=== PATIENT | female | born 1945 | race Caucasian/White ===

== ENCOUNTER 2019-10-30 17:08 | Outpatient (CLI) | payer OTHER, SELFPAY ==
--- NOTE | 2019-10-30 | XRR_ITS ---
PROCEDURE INFORMATION: Exam: XR Left Ankle Exam date and time: 10/30/2019 5:45 PM Age: 74 years old Clinical indication: Prior surgery; Patient HX: Left ankle pain; Additional info: Joint pain TECHNIQUE: Imaging protocol: XR Left ankle. Views: 3 or more views. COMPARISON: No relevant prior studies available. FINDINGS: Bones/joints: Bone spur inferior calcaneus otherwise negative for acute bony abnormalities Soft tissues: Unremarkable XR/XR ankle LT min 3V* [id number] IMPRESSION: No acute findings.
== END 2019-10-30 17:09 | disposition home or self-care (01) ==
LOC: RAD 17:16
PROVIDERS: PCP Nurse Practitioner Family; Visit Provider Nurse Practitioner Family
DX: M25.572 Pain in left ankle and joints of left foot (principal)
CPT/HCPCS: 73610

== ENCOUNTER → 2020-03-08 11:53 | Outpatient (BNVA) | payer MEDICARE, SELFPAY | PROVIDERS: PCP Nurse Practitioner Family; Visit Provider Family Medicine | DX: E03.9 Hypothyroidism, unspecified (principal); I10 Essential (primary) hypertension; E11.9 Type 2 diabetes mellitus without complications; E66.9 Obesity, unspecified; K21.9 Gastro-esophageal reflux disease without esophagitis | CPT/HCPCS: 80053; 80061; 82306; 83036; 84439; 84443; 84480; 85025 ==

== ENCOUNTER → 2020-04-05 11:06 | Outpatient (BNVA) | payer MEDICARE, SELFPAY | PROVIDERS: PCP Nurse Practitioner Family; Visit Provider Family Medicine | DX: I10 Essential (primary) hypertension (principal); E11.9 Type 2 diabetes mellitus without complications | CPT/HCPCS: 80053; 82043 ==

== ENCOUNTER → 2020-04-21 10:10 | Outpatient (BNVA) | payer MEDICARE, SELFPAY | PROVIDERS: PCP Nurse Practitioner Family; Visit Provider Family Medicine | DX: E03.9 Hypothyroidism, unspecified (principal) | CPT/HCPCS: 84443 ==

== ENCOUNTER 2020-06-02 10:48 | Outpatient (CLI) | payer MEDICARE, SELFPAY ==
--- NOTE | 2020-06-02 10:57 | XR_ITS ---
WS: [id number] RIGHT ANKLE: 3 VIEW(S) TECHNIQUE: AP, oblique(s) and lateral. HISTORY: CHRONIC RIGHT ANKLE PAIN COMPARISON: None available. No fracture or dislocation. Mild asymmetry of the ankle mortise. Slightly widened medially. No osteochondral lesion. Moderate melinda rowing of the lateral talofibular articulation. Mild soft tissue edema. Small calcific density in the soft tissues medially. No joint effusion. XR/XR ankle RT min 3V* [id number] IMPRESSION: Mild asymmetry of the tibiotalar joint and narrowing of the talofibular joint s pace. No fractures.
== END 2020-06-02 10:49 | disposition home or self-care (01) ==
PROVIDERS: PCP Family Medicine; Visit Provider Family Medicine
DX: M25.571 Pain in right ankle and joints of right foot (principal); G89.29 Other chronic pain
CPT/HCPCS: 73610

== ENCOUNTER → 2020-06-07 08:44 | Outpatient (BNVA) | payer MEDICARE, SELFPAY | PROVIDERS: PCP Family Medicine; Visit Provider Family Medicine | DX: I10 Essential (primary) hypertension (principal); E03.9 Hypothyroidism, unspecified; E11.9 Type 2 diabetes mellitus without complications; E78.5 Hyperlipidemia, unspecified | CPT/HCPCS: 80053; 80061; 83036; 84443; 85025 ==

== ENCOUNTER → 2020-07-04 15:22 | Outpatient (BNVA) | payer MEDICARE, SELFPAY | PROVIDERS: PCP Family Medicine; Referring Provider Family Medicine; Visit Provider Podiatrist Foot & Ankle Surgery | DX: M25.371 Other instability, right ankle (principal); M25.571 Pain in right ankle and joints of right foot | CPT/HCPCS: 73610 ==

== ENCOUNTER → 2020-08-04 08:26 | Outpatient (BNVA) | payer MEDICARE, SELFPAY | PROVIDERS: PCP Family Medicine; Visit Provider Family Medicine | DX: E03.9 Hypothyroidism, unspecified (principal) | CPT/HCPCS: 84443 ==

== ENCOUNTER 2020-09-09 11:31 | Outpatient (CLI) | payer MEDICARE, SELFPAY ==
[2020-09-09 12:35] LABS: Alanine Aminotransferase 13 U/L (0-33); Albumin Level 4.2 g/dL (3.5-5.2); Alkaline Phosphatase 73 IU/L (35-105); Anion Gap 16.1 (5-19); Aspartate Amino Transferase 14 U/L (0-32); Blood Urea Nitrogen 17 mg/dL (8-23); Calcium 9.4 mg/dL (8.5-10.5); Carbon Dioxide 25 mmol/L (22-29); Chloride 101 mmol/L (98-107); Globulin 3.1 g/dL (1.3-4.6); Glucose 143 mg/dL (65-115); Osmolality Calculated 290 mOsm/kg (285-295); Potassium 4.1 mmol/L (3.5-5.1); Sodium 138 mmol/L (136-145); Total Bilirubin 0.5 mg/dL (0.15-1.2); Total Protein 7.3 g/dL (6.6-8.7)
[2020-09-09 13:47] LABS: Estmated Average Glucose 166; Hemoglobin A1C 7.4 % (4.0-6.0)
== END 2020-09-09 11:32 | disposition home or self-care (01) ==
PROVIDERS: PCP Family Medicine; Visit Provider Family Medicine
DX: E11.9 Type 2 diabetes mellitus without complications (principal)
CPT/HCPCS: 36415; 80053; 83036

== ENCOUNTER → 2020-09-26 10:48 | Outpatient (BNVA) | payer MEDICARE, SELFPAY | PROVIDERS: PCP Family Medicine; Visit Provider Podiatrist Foot & Ankle Surgery | DX: M25.371 Other instability, right ankle (principal); M25.571 Pain in right ankle and joints of right foot; M25.579 Pain in unspecified ankle and joints of unspecified foot | CPT/HCPCS: 73610 ==

== ENCOUNTER → 2020-12-15 11:35 | Outpatient (BNVA) | payer MEDICARE, SELFPAY | PROVIDERS: PCP Family Medicine; Visit Provider Family Medicine | DX: E78.5 Hyperlipidemia, unspecified (principal); E03.9 Hypothyroidism, unspecified; E11.9 Type 2 diabetes mellitus without complications; I10 Essential (primary) hypertension; D56.5 Hemoglobin E-beta thalassemia | CPT/HCPCS: 83036 ==

== ENCOUNTER 2020-12-22 09:35 | Outpatient (CLI) | payer MEDICARE, SELFPAY ==
[2020-12-22 10:32] LABS: Alanine Aminotransferase 11 U/L (0-33); Alkaline Phosphatase 59 IU/L (35-105); Blood Urea Nitrogen 15 mg/dL (8-23); Calcium 9.1 mg/dL (8.5-10.5); Carbon Dioxide 23 mmol/L (22-29); Chloride 100 mmol/L (98-107); Globulin 3.1 g/dL (1.3-4.6); Glucose 129 mg/dL (65-115); Osmolality Calculated 285 mOsm/kg (285-295); Sodium 136 mmol/L (136-145); Thyroid Stimulating Hormone 4.02 uIU/mL (0.27-4.20); Total Bilirubin 0.6 mg/dL (0.15-1.2); Total Protein 7.1 g/dL (6.6-8.7)
[2020-12-22 10:34] LABS: Anion Gap 17.4 (5-19); Potassium 4.4 mmol/L (3.5-5.1)
[2020-12-22 10:35] LABS: Aspartate Amino Transferase 16 U/L (0-32)
== END 2020-12-22 09:36 | disposition home or self-care (01) ==
LOC: LAB 09:38
PROVIDERS: PCP Family Medicine; Visit Provider Family Medicine
DX: E03.9 Hypothyroidism, unspecified (principal)
CPT/HCPCS: 36415; 80053; 84443

== ENCOUNTER 2021-06-14 09:22 | Outpatient (CLI) | payer MEDICARE, SELFPAY ==
[2021-06-14 10:36] LABS: Basophils # 0.1 10^3/uL (0.0-0.1); Basophils % 1.1 %; Eosinophils # 0.1 10^3/uL (0.0-0.8); Eosinophils % 1.5 %; Hemoglobin 14.7 g/dL (11.5-15.3); Lymphocytes # 1.7 10^3/uL (0.8-4.8); Lymphocytes % 18.3 %; Mean Corpuscular Hemoglobin 29.3 pg (28.0-34.0); Mean Corpuscular Volume 91.6 fl (81-99); Monocytes # 0.6 10^3/uL (0.2-0.9); Monocytes % 6.2 %; Neutrophils % 72.7 %; Nucleated Red Blood Cells % 0 %; Platelet Count 228 10^3/cmm (130-400); Red Blood Count 5.02 10^6/uL (4.1-5.3); White Blood Count 9.1 10^3/uL (4.0-10.0)
[2021-06-14 11:33] LABS: Alanine Aminotransferase 17 U/L (0-33); Albumin Level 4.2 g/dL (3.5-5.2); Alkaline Phosphatase 79 IU/L (35-105); Blood Urea Nitrogen 17 mg/dL (8-23); Calcium 9.3 mg/dL (8.5-10.5); Carbon Dioxide 26 mmol/L (22-29); Chloride 102 mmol/L (98-107); Chol HDL Ratio 3.95 mg/dL (0.0-4.40); Cholesterol 217 mg/dL (0-200); Globulin 2.6 g/dL (1.3-4.6); Glucose 162 mg/dL (65-115); HDL Cholesterol 55 mg/dL (60-100); LDL Cholesterol Calculated 140 mg/dL (50-129); LDL HDL Ratio 2.55 RATIO (0.00-3.22); Osmolality Calculated 291 mOsm/kg (285-295); Sodium 138 mmol/L (136-145); Total Bilirubin 0.5 mg/dL (0.15-1.2); Total Protein 6.8 g/dL (6.6-8.7); Triglycerides 112 mg/dL (0-150)
[2021-06-14 11:37] LABS: Anion Gap 14.5 (5-19); Aspartate Amino Transferase 19 U/L (0-32); Potassium 4.5 mmol/L (3.5-5.1)
[2021-06-14 12:31] LABS: Estmated Average Glucose 160; Hemoglobin A1C 7.2 % (4.0-6.0)
== END 2021-06-14 09:23 | disposition home or self-care (01) ==
LOC: LAB 09:28
PROVIDERS: PCP Family Medicine; Visit Provider Family Medicine
DX: I10 Essential (primary) hypertension (principal); E78.5 Hyperlipidemia, unspecified; E11.9 Type 2 diabetes mellitus without complications
CPT/HCPCS: 36415; 80053; 80061; 82044; 83036; 85025

== ENCOUNTER 2021-06-16 06:00 | Outpatient (CLI) | payer MEDICARE, SELFPAY ==
[2021-06-16 08:21] LABS: Creatinine Urine, Random 104 mg/dL (28-217); Microalbum Creatinine Ratio Ur 10 mg/dL (0-20); Microalbumin Random Urine 1 ug/dL (0-20)
== END 2021-06-16 06:01 | disposition home or self-care (01) ==
LOC: LAB 06-23 16:09
PROVIDERS: PCP Family Medicine; Visit Provider Family Medicine
DX: E11.9 Type 2 diabetes mellitus without complications (principal)
CPT/HCPCS: 82044

== ENCOUNTER 2021-08-13 16:37 | Emergency (ER) | payer MEDICARE, SELFPAY ==
[2021-08-13 16:57] VITALS: PULSE 102; RESP 18; TEMP 36.7; O2SAT 96; BMI 37.6
--- NOTE | 2021-08-13 17:38 | ED_ITS ---
HPI - General Adult General: Chief complaint: Headache Stated complaint: Pain all over Time Seen by Provider: 08/13/21 17:37 History of Present Illness: Ms. Bob is a 76-year-old lady with significant history of hypertension, hyperlipidemia, thyroid disorder, diabetes who presents to the emergency department due to generalized illness. She reports onset of symptoms a few days ago and was subacute. She has had generalized body aches worse in her lower extremities and back which she describes as a tingling asleep type feeling though no focality is identified on this. Additionally she has frontal headache which radiates to the back of her neck. She has had generalized malaise, congestion, runny nose, and cough. Denies abdominal symptoms with exception of a few episode of loose stools. Overall course of symptoms is worsening. Intensity is moderate to severe. No other specific changes in health, exacerbating, or alleviating factors identified. Onset (ago): day(s) Severity: moderate Quality: other Pain Consistency: constant Relieving factors: none Exacerbating factors: movement Associated symptoms: Reports cough, decreased appetite, malaise, nausea and weakness Review of Systems General: Reports: 10 or more systems reviewed and unremarkable except in HPI and below Const: Reports: malaise GI: Reports: nausea PFSH ED PFSH: Medical History Benign essential HTN Hypothyroid Type 2 diabetes mellitus, without long-term current use of insulin Surgical History H/O cataract extraction H/O section H/O foot surgery H/O wrist surgery History of cholecystectomy Family History Other CAD (coronary artery disease) Kidney disease Lung disease Thyroid condition Social History Smoking and tobacco status: former smoker Alcohol intake: current Alcohol intake frequency: holidays/special occasions only Alcohol type: wine Physical Exam Const: COMMON NORMALS: patient oriented x3 and alert GENERAL APPEARANCE: cooperative, well developed and ill appearing (Somewhat) HENMT: COMMON NORMALS: normocephalic and atraumatic HEAD & SCALP: normocephalic and atraumatic THROAT: posterior oropharynx normal Eye: COMMON NORMALS: conjunctivae normal CONJUNCTIVA: Yes conjunctivae normal SCLERA: sclerae normal Neck/C-Spine: COMMON NORMALS: supple GENERAL: Yes trachea midline Resp: EFFORT & INSPECTION: Yes able to speak in complete sentences AUSCULTATION: diminished lung sounds Cardio: COMMON NORMALS: regular rate and regular rhythm RATE: regular rate RHYTHM: regular rhythm GI: COMMON NORMALS: Soft to palpation PALPATION: Yes Soft to palpation and No Tenderness to palpation present (GI) PERCUSSION: normal to percussion Extremity: GENERAL: Yes normal exam except as noted and No edema Neuro: COMMON NORMALS: patient oriented x3, CN's II-XII intact bilaterally, moves all extremities, no focal motor deficits and no sensory deficits noted SENSORIUM/ORIENTATION: Yes alert and No Orientation impaired Psych: COMMON NORMALS: mental status grossly normal and Normal thought process present THOUGHT PROCESS: Normal thought process present Course ED course: - Patient was seen and evaluated by me at bedside - Patient placed on cardiac monitors, IV access obtained - Initial evaluation notable for exam as above, somewhat ill-appearing. No focal neurologic deficits. - Labs and xrays personally interpreted by me - Fluids and symptom treatment ordered - Labs notable for no leukocytosis, normal hemoglobin. Metabolic panel without acute electrolyte derangements. COVID-positive. - Imaging notable for no lobar consolidation on chest x-ray. Small left basal ganglia hemorrhage and small superior right parafalcine subdural hematoma without evidence of midline shift. - Upon serial reexamination after treatment the patient was mildly improved after recurrent treatment. - Based on patient history, evaluation, and testing as interpreted the most likely cause of the patient's condition is largely secondary to COVID however patient also found to have intraparenchymal and subdural hemorrhage that is no ntraumatic in nature. - The results of ED evaluation were discussed with the patient including plan for transfer due to requirement for level of care not available if discharged to prevent significant worsening/deterioration. Specifically patient requires neurosurgical evaluation - Patient accepted as ED to ED transfer by Dr. Mcnamara to [facility] in [place]. - Patient was transferred and left the emergency department without further deterioration or significant events. Note: Click bubbles or prepopulated mendoza in note writing are used for assistance with data collection and billing and are inherently more limited than narrative and other text portions of this note. Please use narrative for additional clinical history and defer to narrative/free test for any case of contradictory information. If information appears in only free text or click bubble it should be considered present or absent as reported. Please contact note display card writer for clarifications of clinical information or contradictory information. MDM is a brief summary, contradictory or erroneous seeming information should be clarified and full note should be reviewed. Vital Signs: Vital signs: Vital Signs Temperature 98.0 F 08/13/21 16:57 Pulse Rate 87 08/13/21 20:53 Respiratory Rate 18 08/13/21 20:53 Blood Pressure 143/59 08/13/21 20:53 Pulse Oximetry 99 08/13/21 20:53 MDM - General Adult Medical Decision Making 76-year-old lady presenting with generalized medical symptom of a few days. Patient found to have COVID which likely explains most of patient's symptoms however also found to have intraparenchymal and subdural nontraumatic brain bleeds which likely contribute to headache. Patient is neuro intact. T [facility] in [place] for neurosurgical evaluation. Medical Records I reviewed the patient's medical records. Lab Data I reviewed the patient's lab results. : 08/13/21 18:15 08/13/21 18:15 Radiology Impressions Chest X-Ray 08/13/21 17:48 IMPRESSION: No acute cardiopulmonary abnormality. Head CT 08/13/21 17:48 IMPRESSION: Small left basal ganglia hemorrhage and small superior right parafalcine subdural hematoma. No midline shift. ADDENDUM: 08/13/211902 Confirmation that Cassius Palomares recieved the report was obtained 7:02 PM CDT08/13/2021 Laboratory Results WBC 8.6 10^3/uL (4.0-10.0) 08/13/21 18:15 RBC 5.11 10^6/uL (4.1-5.3) 08/13/21 18:15 Hgb 15.0 g/dL (11.5-15.3) 08/13/21 18:15 Hct 44.4 % (37.0-47.0) 08/13/21 18:15 MCV 86.9 fl (81-99) 08/13/21 18:15 MCH 29.4 pg (28.0-34.0) 08/13/21 18:15 MCHC 33.8 g/dL (30.0-36.0) 08/13/21 18:15 RDW 11.8 % (12.1-15.1) L 08/13/21 18:15 Plt Count 235 10^3/cmm (130-400) 08/13/21 18:15 MPV 9.3 fL (7.4-10.4) 08/13/21 18:15 Neut % (Auto) 81.7 % 08/13/21 18:15 Lymph % (Auto) 7.1 % 08/13/21 18:15 Charlotte % (Auto) 8.9 % 08/13/21 18:15 Eos % (Auto) 0.8 % 08/13/21 18:15 Baso % (Auto) 1.0 % 08/13/21 18:15 Neut # (Auto) 7.05 10^3/uL (1.8-7.7) 08/13/21 18:15 Lymph # (Auto) 0.6 10^3/uL (0.8-4.8) L 08/13/21 18:15 Charlotte # (Auto) 0.8 10^3/uL (0.2-0.9) 08/13/21 18:15 Eos # (Auto) 0.1 10^3/uL (0.0-0.8) 08/13/21 18:15 Baso # (Auto) 0.1 10^3/uL (0.0-0.1) 08/13/21 18:15 Nucleated RBC % (auto) 0 % 08/13/21 18:15 Nucleated RBCs # 0.0 /100WBC 08/13/21 18:15 PT 14.30 SECONDS (12.1-14.9) 08/13/21 19:14 INR 1.08 (0.8-1.2) 08/13/21 19:14 APTT 27.8 SECONDS (23.9-36.7) 08/13/21 19:14 Sodium 137 mmol/L (136-145) 08/13/21 18:15 Potassium 4.1 mmol/L (3.5-5.1) 08/13/21 18:15 Chloride 99 mmol/L (98-107) 08/13/21 18:15 Carbon Dioxide 25 mmol/L (22-29) 08/13/21 18:15 Anion Gap 17.1 (5-19) 08/13/21 18:15 BUN 11 mg/dL (8-23) 08/13/21 18:15 Creatinine 0.6 mg/dL (0.5-0.9) 08/13/21 18:15 GFR Calculation Not Reportable 08/13/21 18:15 Glucose 150 mg/dL (65-115) H 08/13/21 18:15 Calculated Osmolality 286 mOsm/kg (285-295) 08/13/21 18:15 Calcium 9.4 mg/dL (8.5-10.5) 08/13/21 18:15 Total Bilirubin 0.4 mg/dL (0.15-1.2) 08/13/21 18:15 AST 25 U/L (0-32) 08/13/21 18:15 ALT 27 U/L (0-33) 08/13/21 18:15 Alkaline Phosphatase 80 IU/L (35-105) 08/13/21 18:15 Creatine Kinase 52 U/L (26-192) 08/13/21 18:15 C-Reactive Protein 3.3 mg/L (0.0-4.9) 08/13/21 18:15 Total Protein 7.4 g/dL (6.6-8.7) 08/13/21 18:15 Albumin 4.5 g/dL (3.5-5.2) 08/13/21 18:15 Globulin 2.9 g/dL (1.3-4.6) 08/13/21 18:15 Procalcitonin 0.07 ng/mL (0-0.5) 08/13/21 18:15 TSH 2.60 uIU/mL (0.27-4.20) 08/13/21 18:15 Influenza Type A Ag Negative (Negative) 08/13/21 18:15 Influenza Type B Ag Negative (Negative) 08/13/21 18:15 SARS-CoV-2 Ag (Rapid) Positive (Negative) H 08/13/21 18:15 Critical Care Time Critical Care Time: Critical Care Time: Yes Total Critical Care Time: 35 Attestation: Due to a high probability of clinically significant, possibly life threatening deterioration, the patient required my highest level of attention and preparedness to intervene emergently and I personally spent this critical care time directly and personally managing the patient. This critical care time included obtaining a history; examining the patient; pulse oximetry; ordering and review of laboratory and imaging studies; arranging urgent treatment with development of a management plan; evaluation of patient's response to treatment; frequent reassessment; and, discussions with other providers as applicable. It was exclusive of separately billable procedures. Primary system involved is neuro vascular Discharge Plan Discharge Patient Disposition: Transfer to ED Clinical Impression: COVID-19, Subdural hematoma, Headache, Basal ganglia hemorrhage, Cough Condition: Stable Prescriptions: No Action (DME) Spectrum AFO to the right See Rx Instructions .Route .MEDSUPPLY Qty: 1 0RF Rx Instructions: Custom made by [employer]- Consider lateral T Strap multivitamin Tablet 1 tab PO DAILY 0RF potassium 99 mg tablet PO 0RF vitamin B complex Tablet 1 tab PO DAILY 0RF mecobalamin (vitamin B12) 1,000 mcg tablet,chewable 1,000 mcg PO DAILY 0RF cholecalciferol (vitamin D3) 50 mcg (2,000 unit) capsule 50 mcg PO DAILY 0RF cinnamon bark [Cinnamon] 500 mg capsule 500 mg PO DAILY 0RF Kelp 0.15 mg tablet PO 0RF morango PO 0RF vitamin E mixed 100 unit tablet 100 unit PO DAILY 0RF omeprazole 40 mg capsule,delayed release(DR/EC) 40 mg PO DAILY Qty: 90 1RF (DME) Spectrum AFO with lateral T-strap See Rx Instructions .Route .MEDSUPPLY Qty: 1 0RF Rx Instructions: as directed losartan 100 mg tablet 100 mg PO DAILY Qty: 30 0RF amlodipine [Norvasc] 5 mg tablet 5 mg PO DAILY Qty: 30 1RF epinephrine 0.3 mg/0.3 mL auto-injector 0.3 mg IM Q15M PRN (Reason: anaphylaxis) Qty: 2 1RF Rx Instructions: for 3 doses levothyroxine 75 mcg tablet 75 mcg PO ., , SAT & SAT Qty: 90 1RF levothyroxine 50 mcg tablet 50 mcg PO .MON, WED AND FRI 90 Days Qty: 90 0RF canagliflozin 300 mg tablet 300 mg PO QAM Qty: 90 1RF (DME) Diabetic Shoes See Rx Instructions .ROUTE .MEDSUPPLY Qty: 1 0RF Rx Instructions: As directed By [employer] with 3 pairs of inserts atorvastatin 80 mg tablet 80 mg PO .qpm Qty: 90 1RF Januvia 50 mg tablet 50 mg PO DAILY Qty: 90 1RF Referrals: Ashley Guerra DO [Primary Care Provider] - Coding Level of Care Code ED Machine Operator Transplanter for Chg Fwd Exam Comprehensive
--- NOTE | 2021-08-13 17:48 | XRR_ITS ---
PROCEDURE INFORMATION: Exam: XR Chest Exam date and time: 08/13/2021 5:53 PM Age: 76 years old Clinical indication: Cough TECHNIQUE: Imaging protocol: Radiologic exam of the chest. Views: 1 view. COMPARISON: No relevant prior studies available. FINDINGS: Lungs: The lungs are clear. Pleural spaces: Unremarkable. No pleural effusion. No pneumothorax. Heart/Mediastinum: Unremarkable. No cardiomegaly. Bones/joints: Unremarkable. XR/XR chest 1V portable [id number] IMPRESSION: No acute cardiopulmonary abnormality.
--- NOTE | 2021-08-13 17:48 | CTR_ITS ---
PROCEDURE INFORMATION: Exam: CT Head Without Contrast Exam date and time: 08/13/2021 6:04 PM Age: 76 years old Clinical indication: Pain; Other: all over ; Additional info: Headache TECHNIQUE: Imaging protocol: Computed tomography of the head without contrast. Radiation optimization: All CT scans at this facility use at least one of these dose optimization techniques: automated exposure control; mA and/or kV adjustment per patient size (includes targeted exams where dose is matched to clinical indication); or iterative reconstruction. COMPARISON: No relevant prior studies available. RADIATION DOSE METRICS: Total DLP (mGy-cm): 792.35 FINDINGS: Brain: Small 6 mm hyperdense focus in the left basal ganglia may be a tiny hemorrhage. A small superior right parafalcine subdural hematoma is present measuring up to 4.5 mm. No midline shift. Cerebral ventricles: No ventriculomegaly. Paranasal sinuses: Visualized sinuses are unremarkable. No fluid levels. Mastoid air cells: Visualized mastoid air cells are well aerated. Bones/joints: Unremarkable. No acute fracture. Soft tissues: Unremarkable. CT/CT head wo con* [id number] IMPRESSION: Small left basal ganglia hemorrhage and small superior right parafalcine subdural hematoma. No midline shift.
[2021-08-13 18:26] LABS: Basophils # 0.1 10^3/uL (0.0-0.1); Eosinophils # 0.1 10^3/uL (0.0-0.8); Eosinophils % 0.8 %; Hematocrit 44.4 % (37.0-47.0); Lymphocytes # 0.6 10^3/uL (0.8-4.8); Lymphocytes % 7.1 %; Mean Corpuscular HGB Conc 33.8 g/dL (30.0-36.0); Mean Corpuscular Hemoglobin 29.4 pg (28.0-34.0); Mean Corpuscular Volume 86.9 fl (81-99); Mean Platelet Volume 9.3 fL (7.4-10.4); Monocytes # 0.8 10^3/uL (0.2-0.9); Monocytes % 8.9 %; Neutrophils # 7.05 10^3/uL (1.8-7.7); Neutrophils % 81.7 %; Nucleated Red Blood Cells % 0 %; Platelet Count 235 10^3/cmm (130-400); Red Blood Count 5.11 10^6/uL (4.1-5.3); Red Cell Distribution Width 11.8 % (12.1-15.1); White Blood Count 8.6 10^3/uL (4.0-10.0)
[2021-08-13 18:30] VITALS: BP 146/67; PULSE 91; RESP 16; O2SAT 96
[2021-08-13] MEDS: sodium chloride 0.9% 1,000 ML 999 ML IV (18:33)
[2021-08-13] MEDS: ketorolac 30 mg/mL INJ 15 MG IVP (18:33)
[2021-08-13 18:54] LABS: Influenza A by IFA Negative (Negative); Influenza B by IFA Negative (Negative); SARS Covid-2 Antigen Positive (Negative)
[2021-08-13 18:58] LABS: Procalcitonin 0.07 ng/mL (0-0.5)
[2021-08-13 19:10] LABS: Alanine Aminotransferase 27 U/L (0-33); Albumin Level 4.5 g/dL (3.5-5.2); Alkaline Phosphatase 80 IU/L (35-105); Blood Urea Nitrogen 11 mg/dL (8-23); C Reactive Protein 3.3 mg/L (0.0-4.9); Calcium 9.4 mg/dL (8.5-10.5); Carbon Dioxide 25 mmol/L (22-29); Chloride 99 mmol/L (98-107); Creatine Phosphokinase 52 U/L (26-192); Globulin 2.9 g/dL (1.3-4.6); Glucose 150 mg/dL (65-115); Osmolality Calculated 286 mOsm/kg (285-295); Sodium 137 mmol/L (136-145); Total Bilirubin 0.4 mg/dL (0.15-1.2); Total Protein 7.4 g/dL (6.6-8.7)
[2021-08-13 19:21] LABS: Anion Gap 17.1 (5-19); Aspartate Amino Transferase 25 U/L (0-32); Potassium 4.1 mmol/L (3.5-5.1)
[2021-08-13 19:25] VITALS: RESP 18
[2021-08-13] MEDS: fentaNYL 50 mcg/mL INJ 2mL IVP (19:25)
[2021-08-13 19:39] LABS: INR 1.08 (0.8-1.2)
[2021-08-13 19:40] LABS: Partial Thromboplastin Time 27.8 SECONDS (23.9-36.7)
--- NOTE | 2021-08-13 20:18 | PC.NURSE ---
received report. Patient presents with headache for over 1 week. fatigue and malaise. She is Covid +. Incidental findings left basal ganglia hemorrhage and small superior right parafaline subdural hematoma. She is to be transferred to [facility] ED in [place]. Patient is aware of transfer. A/O x 4, even non labored respirations. denies sob, cp, abdominal pain, fever. does endorse headache still.
[2021-08-13 20:53] VITALS: BP 143/59; PULSE 87; RESP 18; O2SAT 99
== END 2021-08-13 20:55 ==
PROVIDERS: Emergency Provider Emergency Medicine; PCP Family Medicine
DX: U07.1 COVID-19 (principal); I62.00 Nontraumatic subdural hemorrhage, unspecified; R51.9 Headache, unspecified; I61.0 Nontraumatic intracerebral hemorrhage in hemisphere, subcortical; I10 Essential (primary) hypertension; E11.9 Type 2 diabetes mellitus without complications; Z87.891 Personal history of nicotine dependence
CPT/HCPCS: 70450; 71045; 80053; 82550; 84145; 84443; 85025; 85610; 85730; 86140; 87426; 87804; 96361; 96374; 96375; 99284; J1885; J3010; J7030

== ENCOUNTER → 2021-10-06 11:30 | Outpatient (BNVA) | payer OTHER, SELFPAY | PROVIDERS: PCP Family Medicine; Visit Provider Family Medicine | DX: E11.9 Type 2 diabetes mellitus without complications (principal); E78.5 Hyperlipidemia, unspecified | CPT/HCPCS: 80053; 80061; 83036 ==

== ENCOUNTER → 2021-12-01 10:17 | Outpatient (BNVA) | payer OTHER, SELFPAY | PROVIDERS: PCP Family Medicine; Visit Provider Family Medicine | DX: I10 Essential (primary) hypertension (principal); E03.9 Hypothyroidism, unspecified; E11.9 Type 2 diabetes mellitus without complications; E78.5 Hyperlipidemia, unspecified | CPT/HCPCS: 80053 ==

== ENCOUNTER → 2022-06-26 09:20 | Outpatient (BNVA) | payer MEDICARE, MEDICAID, SELFPAY | PROVIDERS: PCP Family Medicine; Visit Provider Family Medicine | DX: E11.9 Type 2 diabetes mellitus without complications (principal); E03.9 Hypothyroidism, unspecified; M17.0 Bilateral primary osteoarthritis of knee | CPT/HCPCS: 80053; 80061; 83036; 84443 ==

== ENCOUNTER → 2022-06-27 09:53 | Outpatient (BNVA) | payer MEDICARE, MEDICAID, SELFPAY | PROVIDERS: PCP Family Medicine; Visit Provider Family Medicine | DX: E11.9 Type 2 diabetes mellitus without complications (principal) | CPT/HCPCS: 82043 ==

== ENCOUNTER → 2022-12-25 08:47 | Outpatient (BNVA) | payer MEDICARE, SELFPAY | PROVIDERS: PCP Family Medicine; Visit Provider Family Medicine | DX: E03.9 Hypothyroidism, unspecified (principal) | CPT/HCPCS: 80053; 83036; 84443; 85025 ==

== ENCOUNTER 2022-12-27 10:04 | Outpatient (CLI) | payer MEDICARE, SELFPAY ==
--- NOTE | 2022-12-27 10:14 | XR_ITS ---
WS: [id number] Exam: XR knee RT 3V* [id number] Date/Time of Exam: 12/27/2022 10:15 AM Reason For Exam: knee pain No fracture or dislocation. Mild tricompartmental DJD. No joint effusion. Spurring of the tibial spin es. IMPRESSION: 1. Mild tricompartmental DJD.
--- NOTE | 2022-12-27 10:14 | XR_ITS ---
WS: [id number] Exam: XR knee LT 3V* [id number] Date/Time of Exam: 12/27/2022 10:15 AM Reason For Exam: knee pain No fracture or dislocation. Mild tricompartmental DJD. No joint effusion. Normal soft tissues. IMPRESSION: 1. Mild tricompartmental DJD.
== END 2022-12-27 10:05 | disposition home or self-care (01) ==
PROVIDERS: PCP Family Medicine; Visit Provider Family Medicine
DX: M17.0 Bilateral primary osteoarthritis of knee (principal)
CPT/HCPCS: 73562

== ENCOUNTER → 2023-01-28 09:26 | Outpatient (BNVA) | payer MEDICARE, SELFPAY | PROVIDERS: PCP Family Medicine; Visit Provider Nurse Practitioner | DX: M17.0 Bilateral primary osteoarthritis of knee (principal); Z46.89 Encounter for fitting and adjustment of other specified devices; M25.561 Pain in right knee; M25.562 Pain in left knee | CPT/HCPCS: 20610; 73560; 73565; 73590; 97760; 99204; J1100; J3301; L1812 ==

== ENCOUNTER 2023-01-28 12:04 | Outpatient (CLI) | payer MEDICARE, SELFPAY | END 2023-01-28 12:05 | disposition home or self-care (01) | LOC: SPT 12:05 | PROVIDERS: PCP Family Medicine; Visit Provider Nurse Practitioner | DX: Z46.89 Encounter for fitting and adjustment of other specified devices (principal); M25.561 Pain in right knee; M25.562 Pain in left knee | CPT/HCPCS: 97760; L1812 ==

== ENCOUNTER → 2023-02-08 14:46 | Outpatient (BNVA) | payer MEDICARE, SELFPAY | PROVIDERS: PCP Family Medicine; Visit Provider Family Medicine | DX: E03.9 Hypothyroidism, unspecified (principal) | CPT/HCPCS: 84439; 84443 ==

== ENCOUNTER 2023-02-15 08:18 | Outpatient (RCR) | payer MEDICARE, SELFPAY | END 2023-03-13 23:59 | disposition home or self-care (01) | LOC: SPT 08:18 | PROVIDERS: PCP Family Medicine; Visit Provider Nurse Practitioner | DX: M25.561 Pain in right knee (principal); M25.562 Pain in left knee | CPT/HCPCS: 97161 ==

== ENCOUNTER 2023-03-15 11:11 | Outpatient (RCR) | payer MEDICARE, SELFPAY | END 2023-04-11 23:59 | disposition home or self-care (01) | LOC: SPT 11:11 | PROVIDERS: PCP Family Medicine; Visit Provider Nurse Practitioner | DX: M25.561 Pain in right knee (principal); M25.562 Pain in left knee | CPT/HCPCS: 97110 ==

== ENCOUNTER 2023-04-12 06:00 | Outpatient (RCR) | payer MEDICARE, SELFPAY | END 2023-04-12 23:59 | disposition home or self-care (01) | LOC: SPT 06:00 | PROVIDERS: PCP Family Medicine; Visit Provider Nurse Practitioner | DX: M25.561 Pain in right knee (principal); M25.562 Pain in left knee | CPT/HCPCS: 97110 ==

== ENCOUNTER → 2023-04-18 10:07 | Outpatient (BNVA) | payer MEDICARE, SELFPAY | PROVIDERS: PCP Family Medicine; Visit Provider Family Medicine | DX: E03.9 Hypothyroidism, unspecified (principal) | CPT/HCPCS: 84439; 84443 ==

== ENCOUNTER → 2023-04-22 12:49 | Outpatient (BNVA) | payer MEDICARE, SELFPAY | PROVIDERS: PCP Family Medicine; Visit Provider Nurse Practitioner | DX: M17.0 Bilateral primary osteoarthritis of knee (principal) | CPT/HCPCS: 99213 ==

== ENCOUNTER → 2023-05-24 08:35 | Outpatient (BNVA) | payer MEDICARE, SELFPAY | PROVIDERS: PCP Family Medicine; Visit Provider Specialist | DX: M17.0 Bilateral primary osteoarthritis of knee (principal); Z71.89 Other specified counseling | CPT/HCPCS: 20610; J7327 ==

== ENCOUNTER → 2023-07-04 09:55 | Outpatient (BNVA) | payer MEDICARE, SELFPAY | PROVIDERS: PCP Family Medicine; Visit Provider Family Medicine | DX: E11.9 Type 2 diabetes mellitus without complications (principal); Z13.6 Encounter for screening for cardiovascular disorders | CPT/HCPCS: 80053; 80061; 83036 ==

== ENCOUNTER → 2023-08-05 10:22 | Outpatient (BNVA) | payer MEDICARE, SELFPAY | PROVIDERS: PCP Family Medicine; Visit Provider Nurse Practitioner | DX: M17.11 Unilateral primary osteoarthritis, right knee | CPT/HCPCS: 36415; 73560; 73565; 80053; 85025; 99214 ==

== ENCOUNTER 2023-08-06 14:24 | Outpatient (CLI) | payer MEDICARE, SELFPAY ==
[2023-08-06 15:29] LABS: Add Urine Microscopic? YES; Bilirubin Urine Neg (Negative); Blood Urine Neg (Negative); Glucose Urine UA 4+ (Normal); Ketones Urine 2+ (Negative); Leukocyte Esterase Urine Trace (Negative); Nitrate Urine Negative (Negative); Protein Urine Neg (Negative); RBC Urine RARE /hpf (0-2); Urine Appearance Clear (CLEAR); Urine Color Yellow (Yellow); Urobilinogen Urine Norm (Negative); pH Urine 5 (5-7)
[2023-08-06 15:30] LABS: Add Urine Culture? No
== END 2023-08-06 14:25 | disposition home or self-care (01) ==
LOC: LAB 14:25
PROVIDERS: PCP Family Medicine; Visit Provider Nurse Practitioner
DX: M17.0 Bilateral primary osteoarthritis of knee (principal)
CPT/HCPCS: 81001

== ENCOUNTER 2023-08-09 08:20 | Outpatient (CLI) | payer MEDICARE, SELFPAY ==
--- NOTE | 2023-08-09 08:30 | CT_ITS ---
WS: [id number] CT RIGHT knee, noncontrast HISTORY: planning right TKA. TECHNIQUE: Protocol for [facility] total knee replacement has been obtained. This includes axial imaging th rough the RIGHT hip, RIGHT knee and RIGHT ankle. DLP: 863.39 mGy.cm COMPARISON: 08/05/2023 Mild bilateral SI joint sclerosis, RIGHT greater than LEFT. No destructive bone process involving the hips. RIGHT knee: Mild to moderate tricompartment osteoarthritis. No destructive bone lesions. No significa nt joint effusion. Negative RIGHT ankle. CT/CT knee RT [facility] [id number] IMPRESSION: CT imaging provided for [facility] robotic total knee replacement.
== END 2023-08-09 08:21 | disposition home or self-care (01) ==
PROVIDERS: PCP Family Medicine; Visit Provider Nurse Practitioner
DX: M17.0 Bilateral primary osteoarthritis of knee (principal); Z01.818 Encounter for other preprocedural examination
CPT/HCPCS: 73700

== ENCOUNTER → 2023-08-14 08:58 | Outpatient (BNVA) | payer MEDICARE, SELFPAY | PROVIDERS: PCP Family Medicine; Visit Provider Family Medicine | DX: Z01.818 Encounter for other preprocedural examination (principal) | CPT/HCPCS: 93005 ==

== ENCOUNTER 2023-08-20 15:10 | Observation (INO) | payer MEDICARE, SELFPAY ==
[2023-08-20] VITALS (18 sets, daily range): BP systolic 105–163; BP diastolic 61–100; PULSE 74–83; RESP 16–18; TEMP 36.1–36.8; O2SAT 93–98; BMI 38.6
--- NOTE | 2023-08-20 03:01 | P.ANESASSM_ITS ---
Pre-Anesthetic Assessment Height/Weight: Height 1.47 m Operation Date: 08/20/23 07:00 Proposed Procedures p [facility]re[facility]ot Total Knee Arthroplasty(Right) - Julita Collado MD Familial anesthetic complications: None Was Beta Vianey taken within 24 hours: N/A Was Clonidine taken within 24 hours: N/A Last intake: > 8hrs Social Tobacco Exam alert, oriented x 3, clear to auscultation bilaterally and regular rate & rhythm Airway Mallampati: Class III CV/HEM Deep Vein Thrombosis and Hypertension Metabolic Diabetes Mellitus and Thyroid Disease Anesthetic Plan ASA status: 3 Anesthesia: Regional (specify below) Risk of > 500 ml blood loss (7ml/kg in children): No Medications/Allergies Home Medications Medication Instructions Recorded Confirmed Last Taken Type cholecalciferol (vitamin D3) 50 50 mcg PO DAILY 03/08/20 08/19/23 08/14/23 History mcg (2,000 unit) capsule cinnamon bark 500 mg capsule 500 mg PO DAILY 03/08/20 08/19/23 08/14/23 History (Cinnamon) iodine (kelp) 0.15 mg tablet (Kelp) 0.15 mcg PO DAILY 03/08/20 08/19/23 08/14/23 History mecobalamin (vitamin B12) 1,000 1,000 mcg PO DAILY 03/08/20 08/19/23 08/14/23 History mcg chewable tablet multivitamin 1 tab PO DAILY 03/08/20 08/19/23 08/14/23 History potassium 99 mg tablet 99 mg PO DAILY 03/08/20 08/19/23 08/14/23 History vitamin B complex 1 tab PO DAILY 03/08/20 08/19/23 08/14/23 History vitamin E mixed 100 unit tablet 100 unit PO DAILY 03/08/20 08/19/23 08/14/23 History epinephrine 0.3 mg/0.3 mL 0.3 mg (0.3 mL) IM Q15M PRN 06/24/20 08/19/23 Unknown Rx injection, auto-injector anaphylaxis #2 ea Spectrum AFO to the right #1 ea 07/04/20 08/14/23 Unknown Rx Spectrum AFO with lateral T-strap #1 ea 09/26/20 08/14/23 Unknown Rx Diabetic Shoes #1 ea 06/14/21 08/14/23 Unknown Rx ascorbic acid (vitamin C) 1,000 mg 1 g PO DAILY 12/25/22 08/19/23 08/14/23 History capsule Hinged knee brace Bilateral #1 ea 01/28/23 08/14/23 Unknown Rx elderberry fruit 50 mg/5 mL oral 50 mg PO DAILY 08/14/23 08/19/23 08/14/23 History syrup amlodipine 10 mg tablet 10 mg PO DAILY 08/19/23 08/19/23 08/18/23 History canagliflozin 300 mg tablet 300 mg PO DAILY 08/19/23 08/19/23 08/17/23 History (Invokana) levothyroxine 88 mcg tablet 88 mcg PO DAILY 08/19/23 08/19/23 08/19/23 History losartan 100 mg tablet 100 mg PO DAILY 08/19/23 08/19/23 08/18/23 History rosuvastatin 40 mg tablet 40 mg PO DAILY 08/19/23 08/19/23 08/19/23 History sitagliptin phosphate 50 mg tablet 50 mg PO DAILY 08/19/23 08/19/23 08/17/23 History (Januvia) Allergies Allergy/AdvReac Type Severity Reaction Status Date / Time Opioids - Morphine Analogues Allergy Mild declines Verified 08/19/23 08:06 to take them codeine AdvReac Mild rash Verified 08/19/23 08:06 [facility] Anesthesia Medical History Unilateral primary osteoarthritis, right knee Psychiatric care Benign essential HTN Type 2 diabetes mellitus, without long-term current use of insulin Hypothyroid Surgical History History of cholecystectomy H/O section H/O wrist surgery H/O cataract extraction H/O foot surgery Family History Other CAD (coronary artery disease) Kidney disease Lung disease Thyroid disease Social History Smoking and tobacco/nicotine status: former use of tobacco/nicotine Alcohol intake: current Alcohol intake frequency: holidays/special occasions only Alcohol type: wine Substance/Drug Use: never Data Anesthesia Cardiac Studies: No Data to Display
[2023-08-20] MEDS: sodium chloride 0.9% 1,000 ML 30 ML IV (06:34)
[2023-08-20] MEDS: acetaminophen 1,000 MG/100 ML PIGGYBACK 400 MG IV ×3 (06:35→23:50)
[2023-08-20] MEDS: gabapentin 300 mg Capsule PO (06:40)
[2023-08-20] MEDS: CELEcoxib 200 mg Capsule 400 MG PO (06:40)
[2023-08-20 06:52] LABS: Glucose Point of Care 205 mg/dL (70-110)
--- NOTE | 2023-08-20 07:00 | W.PM.OPSUD ---
Surgery/Procedure H&P Update DATE OF PROCEDURE: August 20, 2023 DATE H&P PERFORMED: 07/15/23 H&P UPDATE INFORMATION: I have reviewed H&P completed within last 30 days, I have examined patient prior to procedure, No changes to prior documentation and H&P is in [facility] EMR on date indicated PLANNED PROCEDURE: Operation Date: 08/20/23 07:00 Proposed Procedures p [facility]ot Total Knee Arthroplasty(Right) - Julita Collado MD Related Problem List Diagnoses (1) Unilateral primary osteoarthritis, right knee:
--- NOTE | 2023-08-20 07:08 | ANES.PROC ---
Anesthesia Procedures Procedure/Date: 08/20/23 Nerve Block ^: Nerve Block 1: Main Anesthesia: spinal anesthesia block Time Out Performed: Yes Consent: requested by attending/covering physician, from patient, from other, risks and benefits reviewed and patient agrees to proceed Nerve block location: adductor canal (R) Anesthesia monitors applied: pulse oximetry, EKG, BP cuff and oxygen Nerve block position: supine Anesthetic Used: ropivicaine 0.5% (30 ml) and with decadron (4 mg) Ultrasound used to: recognize landmarks and visualize and ID femerol nerve Nerve Stimulator Used?: No Interscalene/Femoral BLK: 4 stimuplex 21 g needle used for position and inplane approach, visualize local anesthetic spread and no vascular puncture identified Injection: neg aspiration of heme Patient Tolerated Procedure: well Complications: none
[2023-08-20] MEDS: ceFAZolin 2,000 MG in sodium chloride 0.9% (plus) 50 ML 100 MG IV (07:12)
[2023-08-20] MEDS: tranexamic acid 1,000 mg/10mL SDV 1000 MG IV (07:50)
[2023-08-20] MEDS: BUPivacaine liposome 13.3 mg/mL SDV 20 mL 266 MG INFILTRATI (08:14)
[2023-08-20] MEDS: BUPivacaine 0.5% INJ 30 mL 20 ML XX (08:14)
[2023-08-20] MEDS: ceFAZolin 1,000 mg SDV 2000 MG IRRIGATION (08:15)
[2023-08-20] MEDS: vancomycin 1,000 MG SDV 1000 MG XX (08:16)
--- NOTE | 2023-08-20 10:44 | XR_ITS ---
WS: [id number] Right knee, AP and lateral views, 08/20/2023 Clinical Data: S/P RT TKA in PACU Comparison: Bilateral knees, right knee, 08/05/2023 Findings: The total knee arthroplasty components are in good position. There is postoperative air in the knee j oint. XR/XR knee RT 1-2V [id number] Impression: Right knee arthroplasty.
[2023-08-20] MEDS: oxyCODONE 5 mg IR Tab/Cap PO ×4 (11:18→23:36)
--- NOTE | 2023-08-20 11:46 | P.OP_ITS ---
Operative Report Date of procedure: August 20, 2023 Pre-op diagnosis: Severe degenerative osteoarthritis of the right knee with valgus deformity and large soft tissue envelope Post-op diagnosis: Severe degenerative osteoarthritis of the right knee with valgus deformity and large soft tissue envelope Post-op findings: Severe degenerative osteoarthritis of the right knee. Surgery was complicated secondary to the large soft tissue envelope of adipose tissue. Procedure done: Right total knee arthroplasty with Contreras guidance Implants: The [place] total knee system with a size 3 triathlon beaded cruciate retaining femur right, a triathlon titanium tibial component size 3 beaded, a triathlon X3 tibial bearing CS insert size 3 X 9 mm and a beaded triathlon titanium asymmetric patella size 35 x 10 mm Specimens removed/disposition: Bone, disposed of Pathology: None Surgeon: Julita Collado MD Optical Engineering Manager: Thu Mendez, practitioner, who services were necessary for positioning retraction implantation, closure, and completion of the surgical procedure. Anesthesia: Spinal (With MAC, ASA 3) Estimated blood loss (mL): 120 Tourniquet time (min): 0 (Not utilized) IV fluids (mL): 1,100 Urine output (mL): 100 Complications: None Findings: Severe degenerative osteoarthritis with valgus deformity and denudement of cartilage Condition: stable Disposition: PACU (Then return to PACU for discharge to floor following recovery.) Brief History: This 78-year-old woman presented in clinic with bilateral knee pain wanting to discuss the possibility of total knee arthroplasty. She rated her pain at 8 of 10. She had had cortisone as well as viscosupplementation injections that did not work. She also completed physical therapy without relief of her symptoms. Having tried also anti-inflammatories as well as activity modification, the patient still had no relief. Due to lack of improvement with these conservative measures, the patient wished to proceed with total knee arthroplasty. Risks and complications were discussed with her. Consents were signed and questions were answered. Procedure: The patient was brought to the operating theater, and after undergoing spinal anesthetic, with MAC and with supplemental adductor canal block, ASA 3, the [facility] lower extremity was prepped with Dura-Prep and draped in usual fashion following placement of a tourniquet high on the leg. The leg was then draped free.? Tourniquet was not elevated during the case.? A surgical pause was performed, and at the time of the surgical pause, we confirmed the site and side of surgery. Additionally, we confirmed the appropriate and timely administration of preoperative antibiotics, Ancef 2 g.? The availability of equipment was confirmed, and the patient's identity was verbalized as well. Following the surgical pause, an incision was made centering over the patella continuing proximally and distally as necessary to allow access to the knee joint. Dissection continued through skin and soft tissues using a scalpel. Hemostasis was obtained using electrocautery. The skin incision was followed by a median parapatellar arthrotomy. The leg was extended and the patella was able to be displaced laterally.? Appropriate arrays and markers were placed in appropriate position for use of the Contreras.? Preoperative planning had been accomplished and was discussed in detail with the Contreras patient accounting representative.? Intraoperative mapping of the femur and tibia was accomplished after the arrays were placed.? Internal markers were also placed.? Once we had accomplished the Contreras mapping, we began the appropriate resections for placement of the prosthesis.? Exposure was quite difficult secondary to the patient's thick soft tissue envelope of adipose tissue. The plan was for a cruciate retaining right total knee arthroplasty. Once appropriate mapping had been accomplished retraction was established using manual retraction by surgical technicians and also the Contreras leg positioner and retractors.? The knee was evaluated.? There was significant osteoarthritic change as well as very minimal flexion contracture as well as valgus deformity.? Appropriate bone resection was accomplished using the Contreras.? The femur was sized to a size 3.? Following femoral cuts, attention was directed to the tibia.? Osteophytes were removed prior to this portion of the procedure.? We had performed a minimal medial release at the beginning of the procedure to allow for placement of the array.? Proximal tibia was evaluated, and it was felt that appropriate size for the tibia was a size 3.? Tray was noted to fit nicely with good coverage.? Rim fit was accomplished with the size 3. A trial reduction was accomplished after osteophytes have been removed as well as the medial and lateral menisci.? We had removed the anterior cruciate ligament at the beginning of the case and preserved the posterior cruciate ligament.? Trial reduction was accomplished with a size 3 femoral cruciate retaining component, a size 3 tibial tray and a size 3 CS tibial bearing insert which was 9 mm.? Secondary to the balancing of the knee, we elected to place a 9 mm insert for the actual component. Alignment was felt to be appropriate as well.? Trial components were removed after the femur had been drilled.? Prior to removal of the tibial tray which had been pinned in position with appropriate rotation as determined by the Contreras plan, we broached the tibia.? Subsequently, the 4 drill holes were made for the prosthetic component.? All trial components were removed, and the wound was irrigated.? Plans were made for insertion of the prosthetic components.? Prior to this, the patella was manually prepared.? After resection of the articular surface with the jogging system, it was measured and measured a 35 mm patella.? We resected approximately 10 mm of patella.? Patellar height was restored with the patellar component. Once again, the wound was irrigated.? The Tritanium tibia was impacted into position.? The beaded femur was then impacted into position in a cementless fashion. The CS tibial insert was placed prior to placement of the femoral component. The patella was pressed into position with a patellar clamp.? Exparel was injected about the components deep and superficially.? The knee was then copiously irrigated with betadine and saline and suctioned dry. Attention was then directed to closure. Closure was accomplished with 0 Vicryl in the fascial tissues.? The suture line of 0 Vicryl was supplemented with STRATAFIX, #1, with a running stitch from proximal to distal and a second running stitch from distal to proximal.? This was followed by Surgiflo and vancomycin powder.? Following this, a 2-0 STRATAFIX was used in the subcutaneous tissues, and the skin was closed with 3-0 STRATAFIX.? Care was taken to assure an excellent subcutaneous as well as skin closure.? A sterile dressing was then placed consisting of Dermabond Prineo, OpSite, ABD, sterile soft roll, and an Alan wrap including over the foot. The patient was returned the Recovery Room in a satisfactory condition. X-rays were obtained and reviewed there.? The patient will be discharged to the floor for postoperative rehabilitation and pain management. Related Problem List Diagnoses (1) Unilateral primary osteoarthritis, right knee: (2) Obesity:
[2023-08-20] MEDS: chlorhexidine gluconate 0.12% Btl 473 mL 30 ML MUCOUS MEM ×3 (16:11→21:03)
[2023-08-20] MEDS: tranexamic acid 1,000 MG/100 ML PREMIX 600 MG IV (16:14)
[2023-08-20] MEDS: ceFAZolin 2,000 mg SDV 2000 MG IVP ×2 (16:14→23:38)
[2023-08-20] MEDS: ondansetron 2 mg/ML SDV 2 mL 4 MG IVP (16:35)
[2023-08-20 17:10] LABS: Glucose Point of Care 292 mg/dL (70-110)
[2023-08-20] MEDS: iron polysaccharide complex 150 mg Capsule PO (17:22)
[2023-08-20] MEDS: mupirocin oint 22 gm 1 APPLIC NASAL (17:22)
[2023-08-20] MEDS: sennosides-docusate Tablet 2 TAB PO (17:22)
[2023-08-20] MEDS: calcium carbonate 500 mg Chew Tablet 1000 MG PO (17:22)
[2023-08-20] MEDS: CELEcoxib 200 mg Capsule PO (19:22)
[2023-08-20] MEDS: water for injection-sterile 20 ML 2.5 ML (23:38)
[2023-08-21] VITALS: BP 145/76; PULSE 81; RESP 17; TEMP 37; O2SAT 95
[2023-08-21 04:00] VITALS: BP 116/69; PULSE 69; RESP 16; TEMP 36.9; O2SAT 94
[2023-08-21 05:04] LABS: Basophils % 0.2 %; Eosinophils % 0.1 %; Hematocrit 34.1 % (36-47); Lymphocytes # 1.4 10^3/uL (0.8-4.8); Lymphocytes % 14.7 %; Mean Corpuscular HGB Conc 33.1 g/dL (30-55); Mean Corpuscular Hemoglobin 29.4 pg (27-33); Mean Corpuscular Volume 88.8 fl (85-98); Monocytes # 1.3 10^3/uL (0.2-0.9); Neutrophils # 6.94 10^3/uL (1.8-7.7); Neutrophils % 71.7 %; Nucleated Red Blood Cells % 0 %; Platelet Count 239 10^3/cmm (157-399); Red Blood Count 3.84 10^6/uL (3.85-5.65); Red Cell Distribution Width 11.9 % (12.1-15.1); White Blood Count 9.68 10^3/uL (3.29-11.43)
[2023-08-21 05:19] LABS: Anion Gap 15.1 (5-19); Blood Urea Nitrogen 12 mg/dL (8-23); Calcium 8.7 mg/dL (8.5-10.5); Carbon Dioxide 24 mmol/L (22-29); Chloride 98 mmol/L (98-107); Creatinine Clr Calc Pharmacy 78.0147; Glucose 298 mg/dL (65-115); Osmolality Calculated 287 mOsm/kg (285-295); Potassium 4.1 mmol/L (3.5-5.1); Sodium 133 mmol/L (136-145)
[2023-08-21 06:42] VITALS: RESP 16
[2023-08-21] MEDS: oxyCODONE 5 mg IR Tab/Cap PO ×3 (06:42→13:56)
[2023-08-21 08:00] VITALS: BP 149/76; PULSE 66; RESP 17; TEMP 36.7; O2SAT 96
[2023-08-21] MEDS: morphine 4 mg/mL SDV 1 mL 0.5 MG IVP (08:41)
[2023-08-21] MEDS: calcium carbonate 500 mg Chew Tablet 1000 MG PO (08:47)
[2023-08-21] MEDS: cholecalciferol (vitamin D3) 1,000 unit Tablet 1000 UNIT PO (08:48)
[2023-08-21] MEDS: CELEcoxib 200 mg Capsule PO (08:48)
[2023-08-21] MEDS: losartan 50 mg Tablet 100 MG PO (08:48)
[2023-08-21] MEDS: amlodipine 10 mg Tablet PO (08:48)
[2023-08-21] MEDS: atorvastatin 40 mg Tablet 80 MG PO (08:48)
[2023-08-21] MEDS: iron polysaccharide complex 150 mg Capsule PO (08:48)
[2023-08-21] MEDS: sennosides-docusate Tablet 2 TAB PO (08:48)
[2023-08-21] MEDS: levothyroxine 88 mcg Tablet PO (08:48)
[2023-08-21] MEDS: multivitamin therapeutic Tablet 1 TAB PO (08:48)
[2023-08-21] MEDS: cyanocobalamin 1,000 mcg Tablet 1000 MCG PO (08:49)
[2023-08-21] MEDS: aspirin 325 mg EC Tablet PO (08:49)
[2023-08-21] MEDS: sitagliptin 100 mg Tablet 50 MG PO (09:10)
[2023-08-21] MEDS: mupirocin oint 22 gm 1 APPLIC NASAL (10:35)
--- NOTE | 2023-08-21 10:37 | PC.NURSE ---
Medications delayed due to no IV access. Awaiting ultrasound IV at this time.
[2023-08-21] MEDS: acetaminophen 1,000 MG/100 ML PIGGYBACK 400 MG IV (11:42)
[2023-08-21] MEDS: ceFAZolin 2,000 mg SDV 2000 MG IVP (11:42)
[2023-08-21] MEDS: water for injection-sterile 20 ML (11:43)
[2023-08-21 12:00] VITALS: BP 166/82; PULSE 79; RESP 18; TEMP 36.9; O2SAT 97
--- NOTE | 2023-08-21 12:14 | PC.NURSE ---
Ultrasound IV placed to right upper forearm/AC by SRINIVASAN Powell. Medications given as ordered.
[2023-08-21] MEDS: chlorhexidine gluconate 0.12% Btl 473 mL 30 ML MUCOUS MEM (13:55)
--- NOTE | 2023-08-21 15:21 | P.DS_ITS ---
Discharge Providers Date of Admission: 08/20/23 15:10 Date of Discharge: August 21, 2023 Attending Provider at Admission: Julita Collado MD Attending Provider at Discharge: Julita Collado MD Primary Care Provider: Fran You MD Diagnoses at Discharge Discharge Diagnosis (1) Status post total right knee replacement not using cement: Status: Acute Permanent problem details: Date of procedure: August 20, 2023 Diagnosis: Severe degenerative osteoarthritis of the right knee with valgus deformity and large soft tissue envelope Procedure done: Right total knee arthroplasty with Contreras guidance Implants: The [place] total knee system with a size 3 triathlon beaded cruciate retaining femur right, a triathlon titanium tibial component size 3 beaded, a triathlon X3 tibial bearing CS insert size 3 X 9 mm and a beaded triathlon titanium asymmetric patella size 35 x 10 mm (2) Unilateral primary osteoarthritis, right knee: Status: Acute (3) Obesity: Status: Acute Qualifiers: Body mass index: BMI 39.0-39.9 Obesity classification: adult class 2 (BMI 35 - 39.9) Obesity type: due to excess calories Serious obesity comorbidity presence: without serious comorbidity Qualified Code(s): E66.09 - Other obesity due to excess calories; Z68.39 - Body mass index [BMI] 39.0-39.9, adult Reason for Visit Reason for Visit: M17.11 Brief History: This 78-year-old woman presented in clinic with bilateral knee pain wanting to discuss the possibility of total knee arthroplasty. She rated her pain at 8 of 10. She had had cortisone as well as viscosupplementation injections that did not work. She also completed physical therapy without relief of her symptoms. She also tried anti-inflammatories as well as activity modification, but the patient still had no relief. Due to lack of improvement with these conservative measures, the patient wished to proceed with total knee arthroplasty. Risks and complications were discussed with her. Consents were signed and questions were answered. Hospital Course Hospital Course Patient was admitted under observation status following same-day surgery for right total knee arthroplasty. The patient did well postoperatively. There were no significant postoperative complications. On the first postoperative day, the patient was working with physical therapy. Plans were made for discharge to home with home health. She was comfortable with this, there is no evidence of DVT. Dressing was changed and wound was benign. She will follow-up in the office as scheduled. Physical Exam Const: COMMON NORMALS: no acute distress, average body habitus, patient oriented x3 and alert GENERAL APPEARANCE: cooperative and comfortable ORIENTATION/CONSCIOUSNESS: Yes awake HENMT: COMMON NORMALS: normocephalic and atraumatic HEAD & SCALP: normocephalic and atraumatic Eye: GENERAL EYE: appearance normal, both eyes and all related structures Chest: COMMONS NORMALS: normal inspection of the chest Resp: COMMON NORMALS: normal respiratory effort EFFORT & INSPECTION: Yes able to speak in complete sentences and Yes symmetric chest movement Extremity: RIGHT LOWER EXTREMITY: Yes knee joint (Large outer dressing is removed) Right knee: Yes inspection (There is no significant swelling), Yes palpation (Minimal tenderness to palpation), Yes ROM (Not evaluated, but able to straight leg raise) and Yes neurovascular exam (Intact distally, no evidence of DVT) Neuro: COMMON NORMALS: patient oriented x3 SENSORIUM/ORIENTATION: Yes alert Psych: COMMON NORMALS: mental status grossly normal APPEARANCE: Yes grossly normal ATTITUDE: Yes calm and Yes engaged ATTENTION/CONCENTRATION: Yes attention grossly intact Skin: COMMON NORMALS: no rashes or lesions noted GENERAL SKIN EXAM: no rashes or lesions noted Urinary Catheter Management: Luna: Cath Placed During This Visit: yes, but has since been removed by the nurse Reason for Continuing Indwelling Catheter: Decision to DC Catheter Urinary Catheter Date of Insertion: 08/20/23 Urinary Catheter Time of Insertion: 07:40 Date Urinary Catheter Removed: 08/21/23 Time Urinary Catheter Discontinued: 07:20 Discharge Data Studies Completed and Pending Completed Studies During Hospitalization Category Date Time Status XR knee RT 1-2V [id number] Stat Exams 08/20/23 10:44 Completed Pending at discharge Category Date Time Status Complete Blood Count w/Auto AM LABS Lab 08/22/23 04:00 Uncollected Complete Blood Count w/Auto AM LABS Lab 08/23/23 04:00 Uncollected Radiology Impressions Knee X-Ray 08/20/23 10:44 Impression: Right knee arthroplasty. Laboratory Results WBC 9.68 10^3/uL (3.29-11.43) 08/21/23 04:44 RBC 3.84 10^6/uL (3.85-5.65) L 08/21/23 04:44 Hgb 11.30 g/dL (11.27-16.99) 08/21/23 04:44 Hct 34.1 % (36-47) L 08/21/23 04:44 MCV 88.8 fl (85-98) 08/21/23 04:44 MCH 29.4 pg (27-33) 08/21/23 04:44 MCHC 33.1 g/dL (30-55) 08/21/23 04:44 RDW 11.9 % (12.1-15.1) L 08/21/23 04:44 Plt Count 239 10^3/cmm (157-399) 08/21/23 04:44 MPV 9.0 fL (7.4-10.4) 08/21/23 04:44 Neut % (Auto) 71.7 % 08/21/23 04:44 Lymph % (Auto) 14.7 % 08/21/23 04:44 George % (Auto) 13.0 % 08/21/23 04:44 Eos % (Auto) 0.1 % 08/21/23 04:44 Baso % (Auto) 0.2 % 08/21/23 04:44 Neut # (Auto) 6.94 10^3/uL (1.8-7.7) 08/21/23 04:44 Lymph # (Auto) 1.4 10^3/uL (0.8-4.8) 08/21/23 04:44 George # (Auto) 1.3 10^3/uL (0.2-0.9) H 08/21/23 04:44 Eos # (Auto) 0.0 10^3/uL (0.0-0.8) 08/21/23 04:44 Baso # (Auto) 0.0 10^3/uL (0.0-0.1) 08/21/23 04:44 Nucleated RBC % (auto) 0 % 08/21/23 04:44 Nucleated RBCs # 0.0 /100WBC 08/21/23 04:44 Sodium 133 mmol/L (136-145) L 08/21/23 04:44 Potassium 4.1 mmol/L (3.5-5.1) 08/21/23 04:44 Chloride 98 mmol/L (98-107) 08/21/23 04:44 Carbon Dioxide 24 mmol/L (22-29) 08/21/23 04:44 Anion Gap 15.1 (5-19) 08/21/23 04:44 BUN 12 mg/dL (8-23) 08/21/23 04:44 Creatinine 0.6 mg/dL (0.5-0.9) 08/21/23 04:44 GFR Calculation Not Reportable 08/21/23 04:44 Glucose 298 mg/dL (65-115) H 08/21/23 04:44 POC Glucose 292 mg/dL (70-110) H 08/20/23 17:07 Calculated Osmolality 287 mOsm/kg (285-295) 08/21/23 04:44 Calcium 8.7 mg/dL (8.5-10.5) 08/21/23 04:44 Vitals Last Vital Signs Temp 98.4 F 08/21/23 12:00 Pulse 79 08/21/23 12:00 Resp 18 08/21/23 12:00 BP 166/82 08/21/23 12:00 Pulse Ox 97 08/21/23 12:00 O2 Del Method Room Air 08/21/23 12:00 Discharge Plan Discharge Patient Disposition: Home Health Service Condition: Stable Prescriptions: New acetaminophen 500 mg Tablet 1,000 mg PO Q8H 15 Days Qty: 0 0RF celecoxib 200 mg Capsule 200 mg PO 1XD 30 Days Qty: 30 0RF aspirin 325 mg Tablet,Delayed Release (Dr/Ec) 325 mg PO DAILY 30 Days Qty: 30 0RF oxycodone 10 mg tablet 10 mg PO Q4H PRN (Reason: pain) 7 Days Qty: 40 0RF Continued (DME) Spectrum AFO to the right See Rx Instructions .Route .MEDSUPPLY Qty: 1 0RF Rx Instructions: Custom made by [employer]- Consider lateral T Strap multivitamin Tablet 1 tab PO DAILY potassium 99 mg tablet 99 mg PO DAILY vitamin B complex Tablet 1 tab PO DAILY mecobalamin (vitamin B12) 1,000 mcg tablet,chewable 1,000 mcg PO DAILY cholecalciferol (vitamin D3) 50 mcg (2,000 unit) capsule 50 mcg PO DAILY cinnamon bark [Cinnamon] 500 mg capsule 500 mg PO DAILY Kelp 0.15 mg tablet 0.15 mcg PO DAILY vitamin E mixed 100 unit tablet 100 unit PO DAILY (DME) Spectrum AFO with lateral T-strap See Rx Instructions .Route .MEDSUPPLY Qty: 1 0RF Rx Instructions: as directed ascorbic acid (vitamin C) 1,000 mg capsule 1 g PO DAILY elderberry fruit 50 mg/5 mL syrup 50 mg PO DAILY (DME) Hinged knee brace Bilateral See Rx Instructions .Route .MEDSUPPLY Qty: 1 0RF Rx Instructions: As directed epinephrine 0.3 mg/0.3 mL auto-injector 0.3 mg IM Q15M PRN (Reason: anaphylaxis) Qty: 2 1RF Rx Instructions: for 3 doses (DME) Diabetic Shoes See Rx Instructions .ROUTE .MEDSUPPLY Qty: 1 0RF Rx Instructions: As directed By [employer] with 3 pairs of inserts levothyroxine 88 mcg tablet 88 mcg PO DAILY Rx Instructions: TAKE 1 TABLET BY MOUTH EVERY DAY amlodipine 10 mg tablet 10 mg PO DAILY Rx Instructions: TAKE ONE TABLET BY MOUTH DAILY losartan 100 mg tablet 100 mg PO DAILY Rx Instructions: TAKE 1 TABLET BY MOUTH EVERY DAY rosuvastatin 40 mg tablet 40 mg PO DAILY Rx Instructions: TAKE ONE TABLET BY MOUTH DAILY Januvia 50 mg tablet 50 mg PO DAILY Rx Instructions: TAKE 1 TABLET BY MOUTH EVERY DAY Invokana 300 mg tablet 300 mg PO DAILY Rx Instructions: TAKE 1 TABLET BY MOUTH EVERY MORNING Discharge Orders: Discharge Order (Routine); Ordered 08/21/23 Ordered By: Julita Collado Referrals: Julita Collado MD [Physician] - 09/09/23 8:45 am Discharge Diet: Advance as tolerated and Usual diet Discharge Activity: Increase activity as tolerated, Limit activity as instructed, Use walker/crutches as instructed and As per PT/OT instructions Patient Instructions: Oxycodone, Rapid Release (By mouth), Celecoxib (By mouth), Acute Wound Care (DC), Joint Replacement Surgery (GEN), Total Knee Replacement (GEN), Joint Replacement Stoplight, Post Anesthesia Care Activity Restrictions/Additional Instructions: You may ambulate weightbearing as tolerated. Please maintain the plastic dressi ng over your knee until 2 weeks after surgery at which time you may remove it. There will be glue underneath of it. You may take a shower, but do not soak your knee in water. You may get your knee wet. Range of motion, strengthening, and gait training per physical therapy. Discharge Attestations Time Spent in Discharge Care*: greater than 30 min Specific Discharge Activities: educating patient, documenting/other paperwork and evaluating patient/reviewing data Quality Metrics Clinical Quality Measures [ No reported AMI, CVA or VTE this stay] Coding Level of Care Code Acute Code for Chg Fwd Diagnoses Status post total right knee replacement not using cement Z96.651 Unilateral primary osteoarthritis, right knee M17.11 Class 2 obesity due to excess calories without serious comorbidity with body mass index (BMI) of 39.0 to 39.9 in adult E66.09; Z68.39 Body mass index: BMI 39.0-39.9 Obesity classification: adult class 2 (BMI 35 - 39.9) Obesity type: due to excess calories Serious obesity comorbidity presence: without serious comorbidity
[2023-08-21 15:45] VITALS: BP 166/82; PULSE 79; RESP 18; TEMP 36.9; O2SAT 97
== END 2023-08-21 15:46 | disposition home health service (06) ==
LOC: MEDSURG 15:10
PROVIDERS: Nurse Practitioner; Admitting Provider Specialist; PCP Family Medicine Adult Medicine; Visit Provider Specialist
PROC: 8E0Y0CZ Robotic Assisted Procedure of Lower Extremity, Open Approach (ICD-10-PCS; CPT 27447; principal; 2023-08-20 07:00)
DX: M17.11 Unilateral primary osteoarthritis, right knee (principal); I10 Essential (primary) hypertension; Z86.718 Personal history of other venous thrombosis and embolism; E11.9 Type 2 diabetes mellitus without complications; E03.9 Hypothyroidism, unspecified; Z87.891 Personal history of nicotine dependence
CPT/HCPCS: 20985; 27447; 36415; 36416; 51702; 73560; 80048; 82962; 85025; 97110; 97116; 97161; 97165; 97530; C1776; C9290; G0378; J0131; J0690; J1100; J2270; J2371; J2405; J2704; J2765; J2795; J3010; J3370; J3490; J7030

== ENCOUNTER → 2023-09-09 08:31 | Outpatient (BNVA) | payer MEDICARE, SELFPAY | PROVIDERS: PCP Family Medicine Adult Medicine; Visit Provider Nurse Practitioner | DX: Z96.651 Presence of right artificial knee joint (principal); Z87.891 Personal history of nicotine dependence | CPT/HCPCS: 73560; 73565; 99024 ==

== ENCOUNTER 2023-09-18 11:07 | Outpatient (RCR) | payer MEDICARE, SELFPAY | END 2023-10-12 23:59 | disposition home or self-care (01) | LOC: SPT 11:07 | PROVIDERS: Visit Provider Specialist | DX: Z47.1 Aftercare following joint replacement surgery (principal); Z96.651 Presence of right artificial knee joint | CPT/HCPCS: 97110; 97161 ==

== ENCOUNTER → 2023-09-30 09:58 | Outpatient (BNVA) | payer MEDICARE, SELFPAY | PROVIDERS: Visit Provider Nurse Practitioner | DX: Z96.651 Presence of right artificial knee joint (principal) | CPT/HCPCS: 99024 ==

== ENCOUNTER 2023-10-17 12:55 | Outpatient (RCR) | payer MEDICARE, SELFPAY | END 2023-11-11 23:59 | disposition home or self-care (01) | LOC: SPT 12:55 | PROVIDERS: Visit Provider Specialist | DX: Z47.1 Aftercare following joint replacement surgery (principal); Z96.651 Presence of right artificial knee joint | CPT/HCPCS: 97110 ==

== ENCOUNTER → 2023-10-28 11:03 | Outpatient (BNVA) | payer MEDICARE, SELFPAY | PROVIDERS: Visit Provider Nurse Practitioner | DX: Z96.651 Presence of right artificial knee joint (principal) | CPT/HCPCS: 99024 ==

== ENCOUNTER 2023-11-12 06:30 | Outpatient (RCR) | payer MEDICARE, SELFPAY | END 2023-12-12 23:59 | disposition home or self-care (01) | LOC: SPT 06:30 | PROVIDERS: Visit Provider Specialist | DX: Z47.1 Aftercare following joint replacement surgery (principal); Z96.651 Presence of right artificial knee joint | CPT/HCPCS: 97110 ==

== ENCOUNTER → 2023-12-09 09:56 | Outpatient (BNVA) | payer MEDICARE, SELFPAY | PROVIDERS: Visit Provider Nurse Practitioner | DX: Z96.651 Presence of right artificial knee joint (principal) | CPT/HCPCS: 73560; 73565; 99213 ==

== ENCOUNTER 2023-12-11 15:04 | Outpatient (CLI) | payer MEDICARE, SELFPAY ==
[2023-12-12 14:45] LABS: Alanine Aminotransferase 17 U/L (0-33); Alkaline Phosphatase 74 U/L (35-105); Anion Gap 13.7 (5-19); Aspartate Amino Transferase 19 U/L (0-32); Blood Urea Nitrogen 15 mg/dL (8-23); Calcium 9.2 mg/dL (8.5-10.5); Carbon Dioxide 27 mmol/L (22-29); Chloride 103 mmol/L (98-107); Globulin 2.6 g/dL (1.3-4.6); Glucose 212 mg/dL (65-115); Osmolality Calculated 295 mOsm/kg (285-295); Potassium 4.7 mmol/L (3.5-5.1); Sodium 139 mmol/L (136-145); Thyroid Stimulating Hormone 7.04 uIU/mL (0.27-4.20); Total Bilirubin 0.4 mg/dL (0.15-1.2); Total Protein 6.6 g/dL (6.6-8.7)
[2023-12-12 15:15] LABS: Estmated Average Glucose 154
== END 2023-12-11 15:05 | disposition home or self-care (01) ==
PROVIDERS: PCP Family Medicine; Visit Provider Family Medicine
DX: E11.9 Type 2 diabetes mellitus without complications (principal); E03.9 Hypothyroidism, unspecified
CPT/HCPCS: 36415; 80053; 83036; 84443

== ENCOUNTER 2023-12-13 06:00 | Outpatient (RCR) | payer MEDICARE, SELFPAY | END 2024-01-11 23:59 | disposition home or self-care (01) | LOC: SPT 06:00 | PROVIDERS: PCP Family Medicine; Visit Provider Specialist | DX: Z47.1 Aftercare following joint replacement surgery (principal); Z96.651 Presence of right artificial knee joint | CPT/HCPCS: 97110 ==

== ENCOUNTER → 2024-02-17 09:46 | Outpatient (BNVA) | payer MEDICARE, SELFPAY | PROVIDERS: PCP Family Medicine; Visit Provider Nurse Practitioner | DX: Z96.651 Presence of right artificial knee joint (principal); M17.11 Unilateral primary osteoarthritis, right knee | CPT/HCPCS: 73560; 73565; 99213 ==

== ENCOUNTER → 2024-04-24 11:07 | Outpatient (BNVA) | payer MEDICARE, SELFPAY | PROVIDERS: PCP Family Medicine; Visit Provider Family Medicine | DX: E11.9 Type 2 diabetes mellitus without complications (principal); E03.9 Hypothyroidism, unspecified | CPT/HCPCS: 80053; 83036; 84439; 84443 ==

== ENCOUNTER → 2024-04-28 12:04 | Outpatient (BNVA) | payer MEDICARE, SELFPAY | PROVIDERS: PCP Family Medicine; Visit Provider Family Medicine | DX: E11.9 Type 2 diabetes mellitus without complications (principal) | CPT/HCPCS: 82043 ==

== ENCOUNTER → 2024-05-25 09:09 | Outpatient (BNVA) | payer MEDICARE, SELFPAY | PROVIDERS: PCP Family Medicine; Visit Provider Nurse Practitioner | DX: Z96.651 Presence of right artificial knee joint (principal) | CPT/HCPCS: 73560; 73565; 99213 ==

== ENCOUNTER 2024-08-17 09:39 | Outpatient (CLI) | payer MEDICARE, SELFPAY | END 2024-08-17 09:40 | disposition home or self-care (01) | LOC: LAB 09:42 | PROVIDERS: PCP Family Medicine; Visit Provider Family Medicine | DX: E11.9 Type 2 diabetes mellitus without complications (principal) | CPT/HCPCS: 83036; 85025 ==

== ENCOUNTER 2024-08-20 09:20 | Outpatient (CLI) | payer MEDICARE, SELFPAY ==
[2024-08-20 10:25] LABS: Alanine Aminotransferase 15 U/L (0-33); Albumin Level 4.6 g/dL (3.5-5.2); Alkaline Phosphatase 88 U/L (35-105); Anion Gap 18.9 (5-19); Aspartate Amino Transferase 15 U/L (0-32); Blood Urea Nitrogen 15 mg/dL (8-23); Calcium 9.8 mg/dL (8.5-10.5); Carbon Dioxide 24 mmol/L (22-29); Chloride 100 mmol/L (98-107); Globulin 3.3 g/dL (1.3-4.6); Glucose 218 mg/dL (65-115); Osmolality Calculated 295 mOsm/kg (285-295); Potassium 3.9 mmol/L (3.5-5.1); Sodium 139 mmol/L (136-145); Total Protein 7.9 g/dL (6.6-8.7)
== END 2024-08-20 09:21 | disposition home or self-care (01) ==
PROVIDERS: PCP Family Medicine; Visit Provider Family Medicine
DX: E11.9 Type 2 diabetes mellitus without complications (principal)
CPT/HCPCS: 36415; 80053

== ENCOUNTER → 2024-09-07 10:02 | Outpatient (BNVA) | payer MEDICARE, SELFPAY | PROVIDERS: PCP Family Medicine; Visit Provider Nurse Practitioner | DX: Z98.890 Other specified postprocedural states (principal); Z96.651 Presence of right artificial knee joint | CPT/HCPCS: 73560; 73565; 99214 ==